=== PATIENT | male | born 1945 | race Native Hawaiian/Other Pacific Islander ===

== ENCOUNTER 2019-10-02 04:04 | Emergency (ER) | payer OTHER ==
[~2019-10-02] VITALS: Ht 172.7 cm; Wt 74.4 kg
[2019-10-02 05:04] LABS: PLATELET COUNT 183 K/uL (142-355)
[2019-10-02 05:25] LABS: POTASSIUM 4.4 mmol/L (3.6-5.2)
[2019-10-02 05:43] VITALS: BP 136/76
[2019-10-02] MEDS ORDERED: CYAN10009 IM (06:16)
[2019-10-02] MEDS ORDERED: ASPIRIN 81 LOW81 MG PO (06:17)
[2019-10-02] MEDS ORDERED: NIFE60TA5 PO (06:18)
[2019-10-02] MEDS ORDERED: QUETIAPINE50 MG PO (06:19)
[2019-10-02] MEDS ORDERED: ZOLOFT25 MG PO (06:19)
[2019-10-02] MEDS ORDERED: LEVE250T PO (06:20)
[2019-10-02] MEDS ORDERED: NEURONTIN 100M100 MG PO (06:21)
[2019-10-02] MEDS ORDERED: DIVA500T2 PO (06:21)
[2019-10-02] MEDS ORDERED: DONE5TAB PO (06:22)
[2019-10-02] MEDS ORDERED: TAMS0.4C PO (06:23)
[2019-10-02] MEDS ORDERED: SEROQUEL100 MG PO ×2 (06:23→06:24)
[2019-10-02] MEDS ORDERED: LORA1TAB17 PO (06:24)
== END 2019-10-02 05:43 | disposition other institution (70) ==
LOC: ED 04:04 → EDBD 04:04 → ED 04:04
PROVIDERS: Family Medicine
DX: R46.89 Other symptoms and signs involving appearance and behavior (principal); F22 Delusional disorders; Z03.818 Encounter for observation for suspected exposure to other biological agents ruled out; Z04.6 Encounter for general psychiatric examination, requested by authority
CPT/HCPCS: 36415; 80053; 85027; 87635; 93005; 99283; 99285; U0002

== ENCOUNTER 2019-10-23 03:19 | Emergency (ER) | payer OTHER ==
[~2019-10-23] VITALS: Ht 167.6 cm; Wt 74.4 kg
[~2019-10-23 03:19] MED LIST: ASPIRIN 81 LOW81 MG PO; CYAN10009 IM; DIVA250T PO; DIVA500T2 PO; DIVALPROEX500 MG PO; DONE5TAB PO; ESCI10TA PO; LEVE250T PO; LORA1TAB17 PO; MEMA10TA2 PO; MEMA5TAB PO; NEURONTIN 100M100 MG PO; NIFE60TA5 PO; OLANZAPINE5 MG PO; QUETIAPINE50 MG PO; SEROQUEL100 MG PO; TAMS0.4C PO; TRAZ50TA36 PO; ZOLOFT25 MG PO
[2019-10-23 04:08] LABS: PLATELET COUNT 141 K/uL (142-355)
[2019-10-23 04:18] LABS: POTASSIUM 3.7 mmol/L (3.6-5.2)
[2019-10-23 04:48] VITALS: BP 142/74; TEMP 97.8
[2019-10-23] MEDS ORDERED: SEROQUEL50 MG PO (05:16)
[2019-10-23] MEDS ORDERED: ZOLOFT25 MG PO (05:16)
[2019-10-23] MEDS ORDERED: SEROQUEL100 MG PO (05:18)
[2019-10-23] MEDS ORDERED: DIVA500T2 PO (05:19)
[2019-10-23] MEDS ORDERED: LORA1TAB17 PO (05:21)
[2019-10-23] MEDS ORDERED: DIVALPROEX250 M1 PO (22:50)
[2019-10-23] MEDS ORDERED: DIVALPROEX500 M1 PO (22:51)
[2019-10-23] MEDS ORDERED: [UNRECOGNIZED DRUG - OTHER] PO (23:12)
[2019-10-23] MEDS ORDERED: TRAZODONE HYDRO50 MG PO (23:15)
[2019-10-23] MEDS ORDERED: [UNRECOGNIZED DRUG - OTHER] (23:17)
[2019-10-23] MEDS ORDERED: CLONAZEP ODT0.5 MG PO (23:18)
[2019-10-23] MEDS ORDERED: MEMANTINE PO (23:23)
[2019-10-24] MEDS ORDERED: DIVALPROEX250 M1 PO (16:26)
[2019-10-24] MEDS ORDERED: DIVALPROEX500 MG PO (16:27)
[2019-10-24] MEDS ORDERED: DONE5TAB PO (16:28)
[2019-10-24] MEDS ORDERED: ESCITALOPRAM20 MG PO (16:29)
[2019-10-24] MEDS ORDERED: MEMA10TA2 PO (16:30)
[2019-10-24] MEDS ORDERED: CLON0.5T36 PO (16:31)
[2019-10-24] MEDS ORDERED: TRAZ50TA36 PO (16:32)
[2019-10-24] MEDS ORDERED: CYAN10009 IM (16:33)
[2019-10-24] MEDS ORDERED: NIFE60TA5 PO (16:34)
[2019-10-24] MEDS ORDERED: SPRITAM250 MG PO (16:34)
[2019-10-24] MEDS ORDERED: NEURONTIN 100M100 MG PO (16:36)
[2019-10-24] MEDS ORDERED: TAMSULOSIN0.4 MG PO (16:36)
== END 2019-10-23 04:48 | disposition still patient (30) ==
LOC: ED 03:19
PROVIDERS: Emergency Medicine Emergency Medical Services
DX: F03.91 Unspecified dementia, unspecified severity, with behavioral disturbance (principal); G30.8 Other Alzheimer's disease; Z11.59 Encounter for screening for other viral diseases; Z04.6 Encounter for general psychiatric examination, requested by authority
CPT/HCPCS: 80053; 85027; 87635; 93005; 99283; 99285; U00003